=== PATIENT | female | born 1985 | race Caucasian/White ===

== ENCOUNTER 2017-01-06 19:23 | Emergency (ER) | payer BC ==
[2017-01-06 19:41] VITALS: BP 124/80; PULSE 88; TEMP 98.1; BMI 20.5
[2017-01-06] MEDS ORDERED: diazePAM 5 MG TABLET PO ONE (20:12)
[2017-01-06] MEDS ORDERED: KETOROLAC TROMETHAMINE 30 MG/1 ML VIAL IM ONE (20:12)
[2017-01-06] MEDS ORDERED: KETOROLAC TROMETHAMINE 30 MG/1 ML VIAL ONE (20:32)
[2017-01-06] MEDS ORDERED: diazePAM 5 MG TABLET ONE (20:32)
--- NOTE | 2017-01-06 20:44 | PDOC ---
History of Present Illness - General History Source: Patient Exam Limitations: No Limitations <Radha Hernandez - Last Filed: 01/06/17 20:38> - General History Source: Patient Exam Limitations: No Limitations - History of Present Illness Initial Comments: 01/06/17 21:07 Patient is a 31 year old female with a significant past medical history of Jeremy's, who presents to the ED with complaints of right sided upper back pain beginning 2 months ago. Patient reports right upper back pain has been chronic for last 2 months but intensified last night. She reports pain intensified to the point she was unable to sleep last night. Patient reports seeing Dr. Menchaca for right upper back pain, physician stated possible Jeremy s or autoimmune related. She states she has not seen anyone since. Denies trauma. Denies fever, chills. Denies weakness, numbness. Denies any other symptoms. Allergies: None Social history: No alcohol. No smoking. No illicit drugs. Surgical history: No surgeries PMD: None <Adam Beal - Last Filed: 01/06/17 21:08> - General Chief Complaint: Pain Stated Complaint: UPPER BACK PAIN FOR 2 MONTHS Time Seen by Provider: 01/06/17 19:31 Past History - Past Medical History Thyroid Disease: Yes (JEREMY) - Surgical History Appendectomy: Yes (2009) - Psycho/Social/Smoking Cessation Hx Anxiety: No Suicidal Ideation: No Smoking History: Former smoker Have you smoked in the past 12 months: No If you are a former smoker, when did you quit?: 2009 Information on smoking cessation initiated: No Hx Alcohol Use: Yes (SOCIAL) Drug/Substance Use Hx: No Substance Use Type: Alcohol <Radha Hernandez - Last Filed: 01/06/17 20:38> <Adam Beal - Last Filed: 01/06/17 21:08> - Past Medical History Allergies/Adverse Reactions: Allergies Allergy/AdvReac Type Severity Reaction Status Date / Time No Known Allergies Allergy Unverified 01/06/17 19:25 Home Medications: Ambulatory Orders Cholecalciferol (Vitamin D3) [Vitamin D3] 2,000 unit PO DAILY 01/06/17 Diazepam [Valium] 5 mg PO Q8H PRN #10 tablet MDD 3 01/06/17 Ibuprofen 600 mg PO TID PRN #60 tablet 01/06/17 Levothyroxine [Synthroid -] 50 mcg PO DAILY 01/06/17 Multivit-Min/Iron Fum/Folic AC [Uucjz-Xjbzvze-Jkvxadbx Tablet] 1 tab PO DAILY Review of Systems - Review of Systems Able to Perform ROS?: Yes Comments:: 01/06/17 21:07 GENERAL/CONSTITUTIONAL: No fever or chills. No weakness. HEAD, EYES, EARS, NOSE AND THROAT: No change in vision. No ear pain or discharge. No sore throat. GASTROINTESTINAL: No nausea, vomiting, diarrhea or constipation. GENITOURINARY: No dysuria, frequency, or change in urination. CARDIOVASCULAR: No chest pain or shortness of breath. RESPIRATORY: No cough, wheezing, or hemoptysis. MUSCULOSKELETAL: + Right upper Back pain. No joint or muscle swelling or pain. No neck SKIN: No rash NEUROLOGIC: No headache, vertigo, loss of consciousness, or change in strength/ sensation. ENDOCRINE: No increased thirst. No abnormal weight change. HEMATOLOGIC/LYMPHATIC: No anemia, easy bleeding, or history of blood clots. ALLERGIC/IMMUNOLOGIC: No hives or skin allergy. All Other Systems: Reviewed and Negative <Adam Beal - Last Filed: 01/06/17 21:08> *Physical Exam - Vital Signs Last Vital Signs Temp Pulse Resp BP Pulse Ox 98.1 F 88 16 124/80 100 01/06/17 19:24 01/06/17 19:24 01/06/17 19:24 01/06/17 19:24 01/06/17 19:24 <Radha Hernandez - Last Filed: 01/06/17 20:38> - Vital Signs Last Vital Signs Temp Pulse Resp BP Pulse Ox 98.1 F 88 16 124/80 100 01/06/17 19:24 01/06/17 19:24 01/06/17 19:24 01/06/17 19:24 01/06/17 19:24 - Physical Exam Comments: 01/06/17 21:08 GENERAL: Awake, alert, and fully oriented, in no acute distress HEAD: No signs of trauma EYES: PERRLA, EOMI, sclera anicteric, conjunctiva clear ENT: Auricles normal inspection, nares patent, Moist mucosa NECK: Normal ROM, supple, no lymphadenopathy, JVD, or masses LUNGS: Breath sounds equal, clear to auscultation bilaterally. No wheezes, and no crackles HEART: Regular rate and rhythm, normal S1 and S2, no murmurs, rubs or gallops ABDOMEN: Soft, nontender, normoactive bowel sounds. No guarding, no rebound. No masses MUSCULOSKELETAL: + Right sided paraspinal muscle spasm. + RIght sided tenderness. No midline spinal tenderness. EXTREMITIES: + Upper extremities 5/5 strength. + Lower extremities 5/5 strength. + Sensation intact. Normal range of motion, no edema. No clubbing or cyanosis. No cords, erythema, or tenderness NEUROLOGICAL: Normal speech SKIN: Warm, Dry, normal turgor, no rashes or lesions noted. <Adam Beal - Last Filed: 01/06/17 21:08> ED Treatment Course - ADDITIONAL ORDERS Additional order review: Laboratory Results 01/06/17 20:15 Urine HCG, Qual Negative <Radha Hernandez - Last Filed: 01/06/17 20:38> - ADDITIONAL ORDERS Additional order review: Laboratory Results 01/06/17 20:15 Urine HCG, Qual Negative - Medications Given in the ED: ED Medications Discontinued Medications Generic Name Dose Route Start Last Admin Trade Name Freq PRN Reason Stop Dose Admin Diazepam 5 mg 01/06/17 20:12 01/06/17 20:38 Valium - PO 01/06/17 20:13 5 mg ONCE ONE Administration Ketorolac Tromethamine 30 mg 01/06/17 20:12 01/06/17 20:38 Toradol Injection - IM 01/06/17 20:13 30 mg ONCE ONE Administration <Adam Beal - Last Filed: 01/06/17 21:08> Medical Decision Making - Medical Decision Making 01/06/17 20:38 31 yo F with h/o hashimotos here with c/o upper thoracic back pain. worse with movement. no new weakness or numbness , feel pain radiates down right shoulder and neck and sometimes arm. no f/c no trauma. has had pain for 2 mo. last night couldn't sleep. saw one doctor and they felt it was autoimmune. no other complaints. awake alert lungs clear heart rrr no mrg. abd soft nt. no mildline spinal tenderness. right sided paraspinal m spasm and ttp. nuero upper extremity strenth 5/5 index editor strength 5/5. sensation intact differential: likley muscle spasm. plan nsaids, muscle relaxers. dc and follow up with nuerology and orthopedics, pcp for physical therapy referral. <Radha Hernandez - Last Filed: 01/06/17 20:38> *DC/Admit/Observation/Transfer - Discharge Dispostion Admit: No <Radha Hernandez - Last Filed: 01/06/17 20:38> - Attestations Scribe Attestion: 01/06/17 21:08 Documentation prepared by Adam Beal, acting as medical pathologist for Radha Hernandez MD. <Adam Beal - Last Filed: 01/06/17 21:08> Diagnosis at time of Disposition: Back muscle spasm - Discharge Dispostion Disposition: HOME Condition at time of disposition: Stable - Prescriptions Prescriptions: Ibuprofen 600 mg PO TID PRN #60 tablet PRN Reason: Pain Diazepam [Valium] 5 mg PO Q8H PRN #10 tablet MDD 3 PRN Reason: Back Pain - Referrals Referrals: Buck Hoffman MD [Staff Physician] - - Patient Instructions Printed Discharge Instructions: DI for Back Spasm Additional Instructions: you can take motrin 600 mg every 8 hours as needed for pain, take with food. you can take valium 5 mg every 8 hour as needed for muscle spasm. return for any problems or concerns such as worsening symptoms, weakness numbness or any concers. do not mix valium wtih alcohol or drive after taking medication as it can make you sleep. do not mix with other medications with sedation side effect. follow up wtih a nuerologist for persistant symptoms see referral number for DR Hoffman ( neurology) , call to schedule. you can also obtain referral from your primary doctor. you should discuss physical therapy with your doctor as well.
--- NOTE | 2017-01-08 12:20 | PDOC ---
*Physical Exam - Vital Signs Last Vital Signs Temp Pulse Resp BP Pulse Ox 98.1 F 88 16 124/80 100 01/06/17 19:24 01/06/17 19:24 01/06/17 19:24 01/06/17 19:24 01/06/17 19:24 ED Treatment Course - Medications Given in the ED: ED Medications Discontinued Medications Generic Name Dose Route Start Last Admin Trade Name Lisy PRN Reason Stop Dose Admin Diazepam 5 mg 01/06/17 20:12 01/06/17 20:38 Valium - PO 01/06/17 20:13 5 mg ONCE ONE Administration Ketorolac Tromethamine 30 mg 01/06/17 20:12 01/06/17 20:38 Toradol Injection - IM 01/06/17 20:13 30 mg ONCE ONE Administration Progress Note - Progress Note Progress Note: Received call from patient, then confirmed with Pharmacy, the Rx for Valium ordered by [facility] at the date of discharge from [facility] 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 Patient informed through mg who called initially. Will come to ER to potato picker prescription for 10 tabs of Valium 5mg. *DC/Admit/Observation/Transfer Diagnosis at time of Disposition: Back muscle spasm - Discharge Dispostion Disposition: HOME Condition at time of disposition: Stable - Prescriptions Prescriptions: Ibuprofen 600 mg PO TID PRN #60 tablet PRN Reason: Pain Diazepam [Valium] 5 mg PO Q8H PRN #10 tablet MDD 3 PRN Reason: Back Pain - Referrals Referrals: Buck Roe MD [Staff Physician] - - Patient Instructions Printed Discharge Instructions: DI for Back Spasm Additional Instructions: you can take motrin 600 mg every 8 hours as needed for pain, take with food. you can take valium 5 mg every 8 hour as needed for muscle spasm. return for any problems or concerns such as worsening symptoms, weakness numbness or any concers. do not mix valium wtih alcohol or drive after taking medication as it can make you sleep. do not mix with other medications with sedation side effect. follow up wtih a nuerologist for persistant symptoms see referral number for DR Roe ( neurology) , call to schedule. you can also obtain referral from your primary doctor. you should discuss physical therapy with your doctor as well. - Post Discharge Activity
== END 2017-01-06 20:58 | disposition home or self-care (01) ==
LOC: FER 19:23
PROC: 3E0233Z Introduction of Anti-inflammatory into Muscle, Percutaneous Approach (ICD-10-PCS; principal; 2017-01-06)
DX: M62.830 Muscle spasm of back (principal); E06.3 Autoimmune thyroiditis; Z87.891 Personal history of nicotine dependence
CPT/HCPCS: 84703; 99282-25